=== PATIENT | female | born 1995 | race Caucasian/White ===

== ENCOUNTER → 2017-01-01 | Outpatient (CLI) | payer OTHER ==
[~2017-01-01] MED LIST: [UNRECOGNIZED DRUG - OTHER] PO
== END ==
LOC: STAR 13:17
PROVIDERS: ATTEND Dentist
DX: Z02.9 Encounter for administrative examinations, unspecified (principal)

== ENCOUNTER 2017-01-13 11:00 | Inpatient (IN) | payer OTHER ==
[~2017-01-13] VITALS: Ht 170.2 cm; Wt 71.9 kg
[2017-01-13] MEDS ORDERED: LIDOCAINE 1%, 2ML ONE (12:31)
[2017-01-13 12:45] VITALS: BP 125/89
[2017-01-13] MEDS ORDERED: LACTATED RINGERS 1,000 ML IV SCH (12:45)
[2017-01-13] MEDS ORDERED: FENTANYL PF 100 MCG/2ML ONE ×2 (12:48→16:44)
[2017-01-13] MEDS ORDERED: MIDAZOLAM 1 MG/ML, 2ML ONE (12:48)
[2017-01-13] MEDS ORDERED: KETAMINE 10 MG/ML, 20ML ONE (12:48)
[2017-01-13 12:49] LABS: HCG UR LOT HCG7030192
[2017-01-13 12:50] LABS: HCG UR OBC PASS
[2017-01-13] MEDS ORDERED: LIDOCAINE 1%, 2ML SQ PRN (13:00)
[2017-01-13] MEDS ORDERED: OXYMETAZOLINE NASAL SPRAY 0.05%, 15ML NAS ONE ×2 (13:30→15:01)
[2017-01-13] MEDS ORDERED: PROPOFOL 10 MG/ML, 50ML ONE (13:55)
[2017-01-13] MEDS ORDERED: DEXAMETHASONE 4 MG/ML, 1ML ONE (13:55)
[2017-01-13] MEDS ORDERED: ROCURONIUM 10 MG/ML,10ML ONE (13:55)
[2017-01-13] MEDS ORDERED: CEFAZOLIN 1,000 MG ONE (13:55)
[2017-01-13] MEDS ORDERED: SUCCINYLCHOLINE 20 MG/ML, 10ML ONE (13:55)
[2017-01-13] MEDS ORDERED: THROMBIN 20,000 UNIT VIAL TP ONE (14:44)
[2017-01-13] MEDS ORDERED: CHLORHEXIDINE MOUTHWASH 15 ML UDC MM ONE (14:44)
[2017-01-13] MEDS ORDERED: DEXMEDETOMIDINE 200 MCG/2 ML ONE (14:52)
[2017-01-13] MEDS ORDERED: LIDOCAINE/PF 1%, 30ML INFIL ONE (15:00)
[2017-01-13] MEDS ORDERED: MEPERIDINE/PF 25MG/0.5ML IVPush PRN (16:00)
[2017-01-13] MEDS ORDERED: ACETAMINOPHEN 325 MG TABLET PO PRN ×2 (16:00→19:30)
[2017-01-13] MEDS ORDERED: PROMETHAZINE 25 MG/ML, 1ML IV PRN (16:00)
[2017-01-13] MEDS ORDERED: FENTANYL PF 100 MCG/2ML IV PRN (16:00)
[2017-01-13] MEDS ORDERED: OXYcodone 5 MG/5 ML ORAL.SOL UDC PO PRN (16:00)
[2017-01-13] MEDS ORDERED: HYDROmorphone 1 MG/ML, 1ML IV PRN ×2 (16:00→19:30)
[2017-01-13] MEDS ORDERED: BUPIVACAINE/PF 0.25% INFIL ONE (16:50)
[2017-01-13] MEDS ORDERED: KETOROLAC 30 MG/1 ML IVPush ONE (18:00)
[2017-01-13 19:08] VITALS: BP 100/73
[2017-01-13] MEDS ORDERED: ONDANSETRON 2MG/ML, 2ML IV PRN (19:30)
[2017-01-13] MEDS ORDERED: ACETAMINOPHEN 650 MG SUPP PR PRN (19:30)
[2017-01-13] MEDS: CEFOTETAN PMX 1GM/50ML 50 ML IVPB SCH (22:15)
[2017-01-13] MEDS: D5%-0.45NACL+KCL 20MEQ 1,000 ML IV SCH (22:15)
[2017-01-13] MEDS ORDERED: KETOROLAC 30 MG/1 ML IV PRN (23:00)
[2017-01-14 00:02] VITALS: BP 113/76
[2017-01-14] MEDS: HYDROcodone/APAP 7.5-325MG/15ML UDC PO PRN ×3 (01:37→08:16)
[2017-01-14 04:05] VITALS: BP 114/73
[2017-01-14 05:03] LABS: HEMATOCRIT 37.8 % (34.6-47.8); HEMOGLOBIN 12.8 g/dL (11.7-16.4); WHITE BLOOD COUNT 22.8 x10^3/uL (3.4-10)
[2017-01-14 05:15] LABS: BLOOD UREA NITROGEN 8 mg/dL (7-18)
[2017-01-14 05:33] LABS: DIFF TOTAL CELLS COUNTED 100 CELL DIFF
[2017-01-14 05:34] LABS: VERIFY COUNTS? YES
[2017-01-14 06:40] VITALS: BP 120/83
[2017-01-14] MEDS: D5%-0.45NACL+KCL 20MEQ 1,000 ML IV SCH (08:00)
[2017-01-14] MEDS: CEFOTETAN PMX 1GM/50ML 50 ML IVPB SCH (10:00)
[2017-01-14] MEDS ORDERED: HYDR473S51 PO (10:51)
[2017-01-14] MEDS ORDERED: AMOX250S6 PO (10:52)
[2017-01-14] MEDS ORDERED: MOTRIN PO (10:55)
[2017-01-14] MEDS ORDERED: [UNRECOGNIZED DRUG - OTHER] PO (10:55)
[2017-01-14] MEDS ORDERED: ONDA4TAB7 PO (10:56)
== END 2017-01-14 11:05 | disposition home or self-care (01) | DRG 134 ==
LOC: ORIP 12:16 → 4NOR 18:58 → DCLOUNGE 01-14 10:47
PROVIDERS: ADMIT Dentist; ATTEND Dentist
PROC: 0NH Head and Facial Bones, Insertion (ICD-10-PCS; 2017-01-13)
PROC: 0NH Head and Facial Bones, Insertion (ICD-10-PCS; 2017-01-13)
PROC: 0NHV34Z Insertion of Internal Fixation Device into Left Mandible, Percutaneous Approach (ICD-10-PCS; principal; 2017-01-13 13:15)
DX: M26.04 Mandibular hypoplasia (principal); M26.01 Maxillary hyperplasia
CPT/HCPCS: 36415; 80048; 81025; 82040; 85025; C1713; J0171; J0690; J1100; J1170; J1885; J2250; J2550; J2704; J3010; J3490; J0330; J3480; J7120; S0074